=== PATIENT | female | born 1975 | race Caucasian/White ===

== ENCOUNTER 2018-01-03 18:29 | Emergency (ER) | payer MEDICAID ==
[~2018-01-03] VITALS: Ht 170.2 cm; Wt 132.6 kg
[~2018-01-03 18:29] MED LIST: AZEL6DRO EACHEYE; CLA10T PO; FLUT16SP26 BOTHNARES; HYDR-569 PO
[2018-01-03] MEDS ORDERED: ondansetron 4mg rapidly disintigrating tab PO STA (19:20)
[2018-01-03] MEDS ORDERED: ketorolac trometh inj. 60 MG/2 ML VIAL IM STA (19:20)
[2018-01-03] MEDS ORDERED: dexamethasone 4mg tablet PO STA (19:20)
[2018-01-03] MEDS ORDERED: ONDA8TAB9 PO (19:39)
[2018-01-03 19:59] VITALS: BP 164/91
== END 2018-01-03 20:00 | disposition home or self-care (01) ==
LOC: ER 18:29
DX: G43.909 Migraine, unspecified, not intractable, without status migrainosus (principal); G89.29 Other chronic pain; Z88.1 Allergy status to other antibiotic agents; Z88.8 Allergy status to other drugs, medicaments and biological substances; Z79.899 Other long term (current) drug therapy
CPT/HCPCS: 96372; 99283; J1885; J8540

== ENCOUNTER 2018-04-29 21:43 | Emergency (ER) | payer MEDICAID ==
[~2018-04-29] VITALS: Ht 170.2 cm; Wt 130.0 kg
[~2018-04-29 21:43] MED LIST changes: +HYDR-4383 PO; -HYDR-569 PO; +ONDA8TAB9 PO
[2018-04-29 21:54] VITALS: BP 174/98
[2018-04-29] MEDS ORDERED: AMOX-422 PO (22:39)
--- NOTE | 2018-04-29 22:51 | NUR ---
pt here for nasal congestion, cough
== END 2018-04-29 22:53 | disposition home or self-care (01) ==
LOC: ER 21:43
DX: J32.9 Chronic sinusitis, unspecified (principal); G89.29 Other chronic pain; Z98.890 Other specified postprocedural states; Z88.1 Allergy status to other antibiotic agents; Z79.899 Other long term (current) drug therapy
CPT/HCPCS: 99283

== ENCOUNTER 2018-06-28 19:47 | Emergency (ER) | payer MEDICAID ==
[~2018-06-28] VITALS: Ht 170.2 cm; Wt 131.1 kg
[2018-06-28 19:58] VITALS: BP 190/107
--- NOTE | 2018-06-28 20:11 | NUR ---
Pt ambulated to restroom without assistance and has slight limp.
[2018-06-28] MEDS ORDERED: ketorolac trometh inj. 60 MG/2 ML VIAL IM ONE (20:35)
[2018-06-28] MEDS ORDERED: DICL50TA8 PO (20:51)
== END 2018-06-28 21:07 | disposition home or self-care (01) ==
LOC: ER 19:50
DX: M79.672 Pain in left foot (principal); G89.29 Other chronic pain; M54.9 Dorsalgia, unspecified; Z88.1 Allergy status to other antibiotic agents; Z88.8 Allergy status to other drugs, medicaments and biological substances
CPT/HCPCS: 73650; 96372; 99283; J1885

== ENCOUNTER 2018-07-04 21:35 | Emergency (ER) | payer MEDICAID ==
[~2018-07-04] VITALS: Ht 170.2 cm; Wt 129.1 kg
[~2018-07-04 21:35] MED LIST changes: +DICL50TA8 PO
[2018-07-04 21:46] VITALS: BP 173/100
[2018-07-05] MEDS ORDERED: acetaminophen 325mg tablet PO ONE (00:30)
[2018-07-05] MEDS ORDERED: HYDR-3965 PO (00:33)
== END 2018-07-05 00:38 | disposition home or self-care (01) ==
LOC: ER 21:36
DX: M79.672 Pain in left foot (principal); G89.29 Other chronic pain; Z98.890 Other specified postprocedural states; Z88.1 Allergy status to other antibiotic agents; Z88.8 Allergy status to other drugs, medicaments and biological substances; Z79.899 Other long term (current) drug therapy
CPT/HCPCS: 99283

== ENCOUNTER 2018-09-02 20:57 | Emergency (ER) | payer MEDICAID ==
[~2018-09-02] VITALS: Ht 170.2 cm; Wt 127.7 kg
[2018-09-02] MEDS ORDERED: dexamethasone sod phosphate 10mg/ml inj IV STA (21:22)
[2018-09-02] MEDS ORDERED: ketorolac tromethamine 15mg/ml inj. IV ONE (21:25)
[2018-09-02] MEDS ORDERED: diphenhydrAMINE 50 mg/ml inj IV ONE (21:25)
[2018-09-02] MEDS ORDERED: normal saline 1000ML IV soln IVB ONE (21:25)
[2018-09-02] MEDS ORDERED: metoclopramide 5 mg/ml inj IV ONE (21:25)
[2018-09-02] MEDS ORDERED: ONDA4TAB6 PO (22:20)
[2018-09-02 22:21] VITALS: BP 148/92
== END 2018-09-02 22:35 | disposition home or self-care (01) ==
LOC: ER 20:57
DX: G43.909 Migraine, unspecified, not intractable, without status migrainosus (principal); G89.29 Other chronic pain; Z98.890 Other specified postprocedural states; Z88.1 Allergy status to other antibiotic agents; Z79.899 Other long term (current) drug therapy
CPT/HCPCS: 96374; 96375; 99283; J1100; J1200; J1885; J2765; J7030

== ENCOUNTER 2018-11-28 14:37 | Emergency (ER) | payer MEDICAID ==
[~2018-11-28] VITALS: Ht 170.2 cm; Wt 127.3 kg
[~2018-11-28 14:37] MED LIST changes: +ONDA4TAB6 PO
--- NOTE | 2018-11-28 15:15 | NUR ---
PATIENT STATES THAT SHE WAS DX WITH CARPAL TUNNEL OF RIGHT AND LEFT WRIST 20 YEARS AGO BUT ONLY HAD CARPAL TUNNEL SX ON THE LEFT HAND PATIENT C/O PALMAR NUMBNESS INTO WRIST
[2018-11-28] MEDS ORDERED: ketorolac tromethamine 15mg/ml inj. IM ONE (15:35)
[2018-11-28 17:08] VITALS: BP 149/68
== END 2018-11-28 17:29 | disposition home or self-care (01) ==
LOC: ER 14:37
DX: S63.591A Other specified sprain of right wrist, initial encounter (principal); G89.29 Other chronic pain; G43.909 Migraine, unspecified, not intractable, without status migrainosus; F10.99 Alcohol use, unspecified with unspecified alcohol-induced disorder; Z98.890 Other specified postprocedural states; Z88.8 Allergy status to other drugs, medicaments and biological substances; Z88.1 Allergy status to other antibiotic agents; Z79.899 Other long term (current) drug therapy; X50.1XXA Overexertion from prolonged static or awkward postures, initial encounter; Y93.89 Activity, other specified; Y92.89 Other specified places as the place of occurrence of the external cause; Y99.8 Other external cause status; Y90.9 Presence of alcohol in blood, level not specified
CPT/HCPCS: 29125; 73110; 96372; 99283; J1885

== ENCOUNTER 2018-12-18 16:44 | Emergency (ER) | payer MEDICAID ==
[~2018-12-18] VITALS: Ht 170.2 cm; Wt 127.0 kg
[2018-12-18] MEDS ORDERED: HYDROcodone/acetaminophen 5mg/325mg tablet PO ONE (17:45)
[2018-12-18 18:08] VITALS: BP 152/81
== END 2018-12-18 17:59 | disposition home or self-care (01) ==
LOC: ER 16:44
DX: S93.491A Sprain of other ligament of right ankle, initial encounter (principal); G43.909 Migraine, unspecified, not intractable, without status migrainosus; G89.29 Other chronic pain; F10.99 Alcohol use, unspecified with unspecified alcohol-induced disorder; Z88.8 Allergy status to other drugs, medicaments and biological substances; Z88.1 Allergy status to other antibiotic agents; Z79.899 Other long term (current) drug therapy; Z98.890 Other specified postprocedural states; X50.1XXA Overexertion from prolonged static or awkward postures, initial encounter; Y93.89 Activity, other specified; Y92.89 Other specified places as the place of occurrence of the external cause; Y99.8 Other external cause status; Y90.9 Presence of alcohol in blood, level not specified
CPT/HCPCS: 29515; 73610; 99283

== ENCOUNTER 2019-03-18 21:18 | Emergency (ER) | payer MEDICAID ==
[~2019-03-18] VITALS: Ht 170.2 cm; Wt 112.8 kg
--- NOTE | 2019-03-18 22:23 | NUR ---
MELINDA MONZON WITH PT NOW.
--- NOTE | 2019-03-18 22:24 | NUR ---
MELINDA MONZON TALKING WITH PT NOW.
[2019-03-18] MEDS ORDERED: ketorolac tromethamine 15mg/ml inj. IM ONE (22:25)
[2019-03-18 22:44] VITALS: BP 138/82
== END 2019-03-18 22:45 | disposition home or self-care (01) ==
LOC: ER 21:18
DX: S60.211A Contusion of right wrist, initial encounter (principal); G89.29 Other chronic pain; Z98.890 Other specified postprocedural states; Z88.1 Allergy status to other antibiotic agents; Z88.8 Allergy status to other drugs, medicaments and biological substances; Z79.899 Other long term (current) drug therapy; X50.9XXA Other and unspecified overexertion or strenuous movements or postures, initial encounter; Y93.89 Activity, other specified; Y92.89 Other specified places as the place of occurrence of the external cause; Y99.8 Other external cause status
CPT/HCPCS: 29125; 73130; 96372; 99283; J1885

== ENCOUNTER 2019-09-29 20:24 | Emergency (ER) | payer MEDICAID ==
[~2019-09-29] VITALS: Ht 170.2 cm; Wt 118.6 kg
[2019-09-29] MEDS ORDERED: diphenhydrAMINE 25mg capsule PO ONE (22:15)
[2019-09-29] MEDS ORDERED: proCHLORperazine 10 MG/2 ml inj IM ONE (22:15)
--- NOTE | 2019-09-29 22:16 | NUR ---
SPOKE WITH VÍCTOR COLLADO REGARDING PT SYMPTOMS NO RELIEF AND LONG LOBBY WAIT TIME. GIVEN VERBAL ORDER FOR COMPAZINE 10MG IM X1 DOSE AND BENADRYL 25MG ORAL CAPSULE X1 DOSE NOW. PT PLACED IN T2 FOR MONITORING WHILE RECEIVING TX.
[2019-09-29 23:01] VITALS: BP 132/74
== END 2019-09-29 23:04 | disposition home or self-care (01) ==
LOC: ER 20:24
DX: G43.909 Migraine, unspecified, not intractable, without status migrainosus (principal); G89.29 Other chronic pain; Z98.890 Other specified postprocedural states; Z72.89 Other problems related to lifestyle; Z88.1 Allergy status to other antibiotic agents; Z88.8 Allergy status to other drugs, medicaments and biological substances; Z79.899 Other long term (current) drug therapy
CPT/HCPCS: 96372; 99283; J0780; Q0163

== ENCOUNTER 2019-11-04 09:55 | Emergency (ER) | payer MEDICAID ==
[~2019-11-04] VITALS: Ht 170.2 cm; Wt 117.0 kg
[2019-11-04 09:57] VITALS: BP 135/96
[2019-11-04] MEDS ORDERED: HYDROcodone/acetaminophen 5mg/325mg tablet PO ONE (11:40)
[2019-11-04] MEDS ORDERED: HYDR-3965 PO (11:49)
== END 2019-11-04 12:05 | disposition home or self-care (01) ==
LOC: ER 09:56
DX: S89.91XA Unspecified injury of right lower leg, initial encounter (principal); G43.909 Migraine, unspecified, not intractable, without status migrainosus; G89.29 Other chronic pain; Z98.890 Other specified postprocedural states; Z72.89 Other problems related to lifestyle; Z88.8 Allergy status to other drugs, medicaments and biological substances; Z88.1 Allergy status to other antibiotic agents; Z79.899 Other long term (current) drug therapy; X50.1XXA Overexertion from prolonged static or awkward postures, initial encounter; Y93.89 Activity, other specified; Y92.89 Other specified places as the place of occurrence of the external cause; Y99.8 Other external cause status
CPT/HCPCS: 99283

== ENCOUNTER 2022-02-19 19:46 | Emergency (ER) | payer MEDICAID ==
[~2022-02-19] VITALS: Ht 170.2 cm; Wt 122.7 kg
[2022-02-19 20:21] VITALS: BP 136/81
== END 2022-02-20 03:56 | disposition left against medical advice (07) ==
LOC: ER 19:46
DX: G43.909 Migraine, unspecified, not intractable, without status migrainosus (principal); Z53.21 Procedure and treatment not carried out due to patient leaving prior to being seen by health care provider

== ENCOUNTER 2023-08-03 19:02 | Emergency (ER) | payer MEDICAID ==
[~2023-08-03] VITALS: Ht 170.2 cm; Wt 137.0 kg
[2023-08-03 19:16] VITALS: BP 180/100; PULSE 6; RESP 16; TEMP 98.2; O2SAT 99
[2023-08-03] MEDS ORDERED: CETI10CA PO (21:42)
[2023-08-03] MEDS ORDERED: AMOX-117 PO (21:42)
[2023-08-03] MEDS ORDERED: PSEU120T56 PO (21:42)
[2023-08-03] MEDS ORDERED: FLUT16SP2 BOTHNARES (21:42)
== END 2023-08-03 22:20 | disposition home or self-care (01) ==
LOC: ER 19:02
DX: J32.9 Chronic sinusitis, unspecified (principal); Z72.89 Other problems related to lifestyle; Z88.8 Allergy status to other drugs, medicaments and biological substances; Z79.899 Other long term (current) drug therapy
CPT/HCPCS: 99283

== ENCOUNTER 2024-05-17 16:08 | Emergency (ER) | payer MEDICAID ==
[~2024-05-17] VITALS: Ht 162.6 cm; Wt 146.7 kg
[~2024-05-17 16:08] MED LIST changes: +CETI10CA PO; +FLUT16SP2 BOTHNARES; +PSEU120T56 PO
[2024-05-17] MEDS ORDERED: LIDO700A32 TD (16:59)
[2024-05-17] MEDS ORDERED: BACL10TA2 PO (16:59)
[2024-05-17] MEDS: LIDOcaine 5% patch TP STA (17:01)
[2024-05-17] MEDS: ketorolac trometh 30MG/ML vial 30 MG/ML VIAL IM ONE (17:01)
[2024-05-17 17:09] VITALS: BP 126/86; PULSE 80; RESP 16; TEMP 97.7; O2SAT 98
== END 2024-05-17 17:10 | disposition home or self-care (01) ==
LOC: ER 16:08
DX: S39.012A Strain of muscle, fascia and tendon of lower back, initial encounter (principal); G89.29 Other chronic pain; M54.9 Dorsalgia, unspecified; G43.909 Migraine, unspecified, not intractable, without status migrainosus; Z72.89 Other problems related to lifestyle; Z88.8 Allergy status to other drugs, medicaments and biological substances; Z79.52 Long term (current) use of systemic steroids; Z79.899 Other long term (current) drug therapy; Z98.890 Other specified postprocedural states; X58.XXXA Exposure to other specified factors, initial encounter; Y93.89 Activity, other specified; Y92.89 Other specified places as the place of occurrence of the external cause; Y99.8 Other external cause status
CPT/HCPCS: 96372; 99283; J1885

== ENCOUNTER 2024-08-01 17:53 | Emergency (ER) | payer MEDICAID ==
[~2024-08-01] VITALS: Ht 170.2 cm; Wt 142.9 kg
[~2024-08-01 17:53] MED LIST changes: +BACL10TA2 PO; +LIDO700A32 TD
[2024-08-01] MEDS: amox tr/potassium clavulanate 875/125mg TAB PO ONE (19:32)
[2024-08-01] MEDS ORDERED: HYDR-3686 PO (19:33)
[2024-08-01] MEDS ORDERED: KEN0.1O TP (19:33)
[2024-08-01] MEDS ORDERED: CEPH-585 PO (19:33)
[2024-08-01 19:56] VITALS: BP 170/99; PULSE 92; RESP 18; TEMP 98.6; O2SAT 99
== END 2024-08-01 19:57 | disposition home or self-care (01) ==
LOC: ER 17:54
DX: L30.9 Dermatitis, unspecified (principal); G89.29 Other chronic pain; M54.9 Dorsalgia, unspecified; G43.909 Migraine, unspecified, not intractable, without status migrainosus; Z98.890 Other specified postprocedural states; Z72.89 Other problems related to lifestyle; Z88.8 Allergy status to other drugs, medicaments and biological substances; Z79.899 Other long term (current) drug therapy
CPT/HCPCS: 99283

== ENCOUNTER 2024-10-05 11:21 | Emergency (ER) | payer MEDICAID ==
[~2024-10-05] VITALS: Ht 170.2 cm; Wt 129.1 kg
[~2024-10-05 11:21] MED LIST changes: +LIDO-52 TD; -LIDO700A32 TD
[2024-10-05 11:25] VITALS: TEMP 98.3
[2024-10-05 15:11] VITALS: BP 168/98; PULSE 71; O2SAT 100
--- NOTE | 2024-10-05 16:22 | Physician Documentation ---
History of Present Illness ~ Chief Complaint: Headache Stated Complaint: MIGRAINE Time Seen by MD: 16:06 Primary Medical Doctor: PRIYA BETANCOURT HPI 49-year-old female presents to the ED with a complaint of a migraine x4 days. She states she has taken many OTC remedies including Excedrin, caffeine, soda ibuprofen yesterday. States that she does have light sensitivity and mild nausea. She reports that the pain starts in her forehead and in radiates to the back of her head. Denies any previous neck injury Day of Onset: Oct 05, 2024 Medication Reconciliation Allergies: Coded Allergies: Bacitracin Zinc (Verified Allergy, Mild, RASH, 10/05/24) bacitracin (Verified Allergy, Mild, RASH, 10/05/24) neomycin sulfate (Verified Allergy, Mild, RASH, 10/05/24) polymyxin B (Verified Allergy, Mild, RASH, 10/05/24) Scheduled Azelastine Hcl (Optivar), 1 DROP EACHEYE BID Baclofen (Baclofen), 1 TAB PO Q8H Cetirizine Hcl (Zyrtec), 1 CAP PO DAILY Fluticasone Propionate (Fluticasone Propionate), 2 SPRAYS BOTHNARES DAILY Fluticasone Propionate (Flonase), 2 SPRAYS BOTHNARES DAILY Hydrocodone/Acetaminophen ([place] 5-325 Tablet), 1 TABLET PO BID Lidocaine (Lidoderm), 1 PATCH TD DAILY Loratadine* (Claritin*), 10 MG PO DAILY Ondansetron (Zofran Odt), 4 MG PO QID Ondansetron Hcl (Zofran), 1 TAB PO Q8H Pseudoephedrine HCl (Sudafed 12 Hour), 1 TAB PO Q12H Scheduled PRN Diclofenac Sodium (Diclofenac Sodium), 1 TABLET PO BID PRN for pain Past Medical History Past Medical History: Migraine, *MUSCULOSKELETAL*, Chronic Back Pain, Psoriasis Past Surgical History: orthopedic surgeries Alcohol Use: Occasionally Drug Use: none Lives with: Family Lives In: Home Occupation: employed Review of Systems All Other Systems at this time: Reviewed and Negative ROS As stated above in the HPI, otherwise all systems are reviewed and negative. Physical Exam Vital Signs: Temperature: 98.3, Source: Temporal, Heart Rate: 71, Respiratory Rate: 18, BP: 168/98, Pulse Oximetry: 100, Weight: 129.090 Oxygen Flow Rate: 0 Physical Exam General: Alert, no apparent distress. HEENT: PERRL, EOMI, no injection, moist mucous membranes. Respiratory: Lungs clear, no respiratory distress. Cardiovascular: Regular rate and rhythm, no murmurs. Neurologic: Oriented x4. Psychiatric: Normal mood and affect. Skin: Normal color, warm and dry. No edema, no ecchymosis. Progress Results/Orders Results/Orders Completed Orders - JOSE LUIS SIMONS PRODUCTION RECOVERY OPERATOR Normal Saline 1000ml (Sodium Chloride 10 (10/05/24 16:20) Ketorolac Trometh 30mg/Ml Vial (Toradol (10/05/24 16:20) Metoclopramide Inj (Reglan Inj) (10/05/24 16:20) Diphenhydramine Inj (Benadryl Inj.) (10/05/24 16:20) Diphenhydramine Capsule (Benadryl Capsul (10/05/24 17:00) Metoclopramide Tablet (Reglan Tablet) (10/05/24 17:00) Ketorolac Trometh 15mg/Ml Vial (Toradol (10/05/24 17:00) Medications Received in ER Medications (Trade) Dose Ordered Sig/Kyle Route PRN Reason Start Time Stop Time Status Last Admin Dose Admin (Benadryl capsule) 25 mg ONCE ONCE PO 10/05/24 17:00 10/05/24 17:04 DC 10/05/24 17:16 25 MG (Reglan tablet) 10 mg ONCE ONCE PO 10/05/24 17:00 10/05/24 17:04 DC 10/05/24 17:16 10 MG (Toradol injection) 15 mg ONCE ONCE IM 10/05/24 17:00 10/05/24 17:04 DC 10/05/24 17:17 15 MG Vital Signs 10/05/24 10/05/24 10/05/24 10/05/24 11:25 15:11 16:44 17:17 Temp 98.3 Pulse 95 71 Resp 18 18 16 B/P (MAP) 171/92 168/98 (121) Pulse Ox 95 100 O2 Flow Rate 0 0 Medical Decision Making Findings He had patient for a an acute migraine. Not present with any focal deficits or any other symptoms outside of light sensitivity and head pain. Had no vision deficiencies. She refused fluid hydration and IV meds. Gave her oral meds and discharged she reported improved symptoms Differential Dx:Considerations: Include: RED-Cluster, RED-Migraine, RED- Hypertensive, RED-Muscular contraction, RED-Post lumbar puncture, Carbon monoxide toxicity, Close head injuyr, CVA, Fever induced, Hemorrhage-Epidural, Hemorrhage-Intracerebral, Hemorrhage-Subarachnoid, Hemorrhage-Subdural, Mass lesion, Meningitis, Post-traumtic, Pseudotumor cerebri, Sinusitis, Temporal arteritis, Trigeminal neuralgia, Other Departure Disposition: HOME / SELF CARE / HOMELESS Impression: Primary Impression: Migraine Additional Impression: Headache Condition: Stable Discharge Instructions: Migraine Headache Referrals: NO PRIMARY CARE PROVIDER (PCP) Signature Scribe Signature: d Attestation: Scribed for Jose Luis Simons Np by Jose Luis Lewis NP . 10/05/24 17:44 JOSE LUIS SIMONS NP Oct 05, 2024 16:22
[2024-10-05] MEDS: ketorolac trometh 30MG/ML vial 30 MG/ML VIAL IV ONE (17:12)
[2024-10-05] MEDS: metoclopramide 5 mg/ml inj IV ONE (17:12)
[2024-10-05] MEDS: normal saline 1000ML IV soln IVB ONE (17:13)
[2024-10-05 17:17] VITALS: RESP 16
[2024-10-05] MEDS: ketorolac trometh 15mg/ml vial 15 MG/ML ML IM ONE (17:17)
== END 2024-10-05 17:48 | disposition home or self-care (01) ==
LOC: ER 11:22
DX: G43.909 Migraine, unspecified, not intractable, without status migrainosus (principal); Z88.8 Allergy status to other drugs, medicaments and biological substances
CPT/HCPCS: 96372; 99283; J1885; J7030; Q0163

== ENCOUNTER 2024-12-09 19:31 | Emergency (ER) | payer MEDICAID ==
[~2024-12-09] VITALS: Ht 170.2 cm; Wt 118.0 kg
[2024-12-09] MEDS: ketorolac trometh 15mg/ml vial 15 MG/ML ML IM ONE (23:13)
[2024-12-09] MEDS ORDERED: BACL10TA2 PO (23:43)
--- NOTE | 2024-12-09 23:43 | Physician Documentation ---
History of Present Illness ~ Chief Complaint: Back Pain Stated Complaint: BACK PAIN Time Seen by MD: 22:48 Primary Medical Doctor: PRIYA WILSON [facility] HPI This is a 49-year-old female with history of right-sided low back pain and sciatica, patient reports that she had to do a significant amount of walking in the past few days and this is aggravated her sciatica, patient presents requesting an injection of Toradol and a prescription for baclofen as this combination of medications has helped in the past. Patient reports no significant change in the nature of the back pain and reports no new numbness or weakness in her legs, no recent trauma, no saddle paresthesia, no fever, no unexpected weight loss, no loss of bowel or bladder control, and no history of IV drug use, cancer, or tuberculosis. Medication Reconciliation Allergies: Coded Allergies: Bacitracin Zinc (Verified Allergy, Mild, RASH, 12/09/24) bacitracin (Verified Allergy, Mild, RASH, 12/09/24) neomycin sulfate (Verified Allergy, Mild, RASH, 12/09/24) polymyxin B (Verified Allergy, Mild, RASH, 12/09/24) Scheduled Azelastine Hcl (Optivar), 1 DROP EACHEYE BID Baclofen (Baclofen), 1 TAB PO Q8H Baclofen (Baclofen), 1 TAB PO Q8H Cetirizine Hcl (Zyrtec), 1 CAP PO DAILY Fluticasone Propionate (Fluticasone Propionate), 2 SPRAYS BOTHNARES DAILY Fluticasone Propionate (Flonase), 2 SPRAYS BOTHNARES DAILY Hydrocodone/Acetaminophen ([place] 5-325 Tablet), 1 TABLET PO BID Lidocaine (Lidoderm), 1 PATCH TD DAILY Loratadine* (Claritin*), 10 MG PO DAILY Ondansetron (Zofran Odt), 4 MG PO QID Ondansetron Hcl (Zofran), 1 TAB PO Q8H Pseudoephedrine HCl (Sudafed 12 Hour), 1 TAB PO Q12H Scheduled PRN Diclofenac Sodium (Diclofenac Sodium), 1 TABLET PO BID PRN for pain Past Medical History Past Medical History: Migraine, *MUSCULOSKELETAL*, Chronic Back Pain, Psoriasis Past Surgical History: orthopedic surgeries Alcohol Use: Occasionally Drug Use: none Lives with: Family Lives In: Home Occupation: employed Review of Systems ROS As stated above in the HPI, otherwise all systems are reviewed and negative. Physical Exam Physical Exam Vital Signs: Temperature: 97.6, Source: Temporal, Heart Rate: 65, Respiratory Rate: 16, BP: 170/91, Pulse Oximetry: 98, Weight: 118.000 Physical Exam VITALS: Reviewed and as above. GENERAL: Alert, nontoxic appearing, no apparent distress. RESPIRATORY: No increased work of breathing, no respiratory distress, speaking in full clear sentences BACK: No central spinal tenderness, no step-offs no crepitus Progress Results/Orders Results/Orders Completed Orders - GACRIA VITALE Baclofen Tablet (Lioresal Tablet) (12/09/24 22:00) Ketorolac Trometh 15mg/Ml Vial (Toradol (12/09/24 22:00) Vital Signs 12/09/24 12/09/24 12/09/24 12/09/24 19:40 23:13 23:37 23:49 Temp 97.6 97.4 Pulse 65 82 Resp 15 16 16 16 B/P (MAP) 170/91 150/82 Pulse Ox 98 98 Medical Decision Making Findings This 49 year-old female with history of right sided low back pain and sciatica presented requesting a Toradol injection and a prescription for baclofen after aggravating her low back pain and sciatica over the past 2 to 3 days due to increased physical activity. Physical exam demonstrated mild tenderness to the low back without central spinal tenderness. Remainder of physical exam was benign with no other findings consistent with patient report of no other symp toms. It was reassuring patient reported no significant change in the nature of the back pain and reports no new numbness or weakness in her legs, no recent trauma, no saddle paresthesia, no fever, no unexpected weight loss, no loss of bowel or bladder control, and no history of IV drug use, cancer, or tuberculosis therefore imaging not indicated. Patient was medicated for pain and provided careful return to care precautions and discharge to follow up with primary care. Patient reported understanding of all return precautions. Differential Dx:Considerations: Include: Aortic dissection, Appendicitis, DJD, Fracture, Musculoskeletal pain, Strain, Urolithiasis, Other (Cauda Equina) Departure Time of Disposition: 23:43 Disposition: 01 HOME / SELF CARE / HOMELESS Impression: Primary Impression: Low back pain Qualified Codes: M54.41 - Lumbago with sciatica, right side; G89.29 - Other chronic pain Condition: Improved Discharge Instructions: Chronic Back Pain, Sciatica Additional Instructions: Please use the baclofen as needed for low back pain, continue to use the previously prescribed and [id number] medications for your chronic low back pain. Do not drive or operate heavy machinery while taking the baclofen. Please follow up with your primary care provider in the next few days. Please return to the emergency department for any new or worsening concerning symptoms including but not limited to new loss of bowel or bladder control, new or progressively worsening weakness or numbness in your legs, or for numbness in your groin. Referrals: NO PRIMARY CARE PROVIDER (PCP) Prescriptions Baclofen (Baclofen) 10 Mg Tablet 1 TAB PO Q8H for 10 Days, #30 TAB 0 Refills Prov: GARCIA VITALE 12/09/24 Education Educated: Patient Educated regarding: diagnosis, treatment, prognosis, need for follow up Signature Scribe Signature: No Scribe Attestation: The note accurately reflects work and decisions made by me.YVETTE [place] 12/12/24 15:39 GARCIA VITALE Dec 09, 2024 23:43
[2024-12-09 23:49] VITALS: BP 150/82; PULSE 82; RESP 16; TEMP 97.4; O2SAT 98
== END 2024-12-09 23:51 | disposition home or self-care (01) ==
LOC: ER 19:31
DX: M54.50 Low back pain, unspecified (principal); G43.909 Migraine, unspecified, not intractable, without status migrainosus; G89.29 Other chronic pain; Z79.899 Other long term (current) drug therapy; Z88.8 Allergy status to other drugs, medicaments and biological substances; Z72.89 Other problems related to lifestyle
CPT/HCPCS: 96372; 99283; J1885

== ENCOUNTER 2025-01-21 07:52 | Emergency (ER) | payer MEDICAID ==
[~2025-01-21] VITALS: Ht 170.2 cm; Wt 138.6 kg
[2025-01-21 07:59] VITALS: BP 145/95; PULSE 71; TEMP 97.6; O2SAT 97
--- NOTE | 2025-01-21 09:29 | Physician Documentation ---
History of Present Illness ~ Chief Complaint: Foot pain Stated Complaint: FOOT PAIN Time Seen by MD: 09:14 OK to notify your PCP?: Yes Primary Medical Doctor: PRIYA BETANCOURT Source: patient Mode of Arrival: POV Exam Limitations: no limitations HPI 49-year-old female presents for Right foot pain for 2 weeks. She says that the pain has increased to where she is unable to walk her child to school. She reports the pain wraps like a stirrup from the lateral malleolus across the Achilles and to the medial malleolus. She is also having pain in the arch of her foot as well. No visible swelling. She has tried Tylenol and ibuprofen at home as well as rolling the arch of her foot onto a water bottle with no relief. Tetanus witin 5 years: Yes Medication Reconciliation Allergies: Coded Allergies: Bacitracin Zinc (Verified Allergy, Mild, RASH, 01/21/25) bacitracin (Verified Allergy, Mild, RASH, 01/21/25) neomycin sulfate (Verified Allergy, Mild, RASH, 01/21/25) polymyxin B (Verified Allergy, Mild, RASH, 01/21/25) Scheduled Azelastine Hcl (Optivar), 1 DROP EACHEYE BID Baclofen (Baclofen), 1 TAB PO Q8H Baclofen (Baclofen), 1 TAB PO Q8H Cetirizine Hcl (Zyrtec), 1 CAP PO DAILY Fluticasone Propionate (Fluticasone Propionate), 2 SPRAYS BOTHNARES DAILY Fluticasone Propionate (Flonase), 2 SPRAYS BOTHNARES DAILY Hydrocodone/Acetaminophen ([place] 5-325 Tablet), 1 TABLET PO BID Lidocaine (Lidoderm), 1 PATCH TD DAILY Loratadine* (Claritin*), 10 MG PO DAILY Ondansetron (Zofran Odt), 4 MG PO QID Ondansetron Hcl (Zofran), 1 TAB PO Q8H Pseudoephedrine HCl (Sudafed 12 Hour), 1 TAB PO Q12H Scheduled PRN Diclofenac Sodium (Diclofenac Sodium), 1 TABLET PO BID PRN for pain Past Medical History Past Medical History: Migraine, *MUSCULOSKELETAL*, Chronic Back Pain, Psoriasis Past Surgical History: orthopedic surgeries Alcohol Use: Occasionally Drug Use: none Lives with: Family Lives In: Home Occupation: employed Review of Systems All Other Systems at this time: Reviewed and Negative Physical Exam Vital Signs: RN Vital Signs have been reviewed: Yes, Temperature: 97.6, Source: Temporal, Heart Rate: 71, Respiratory Rate: 16, BP: 145/95, Pulse Oximetry: 97, Weight: 138.600 Pulse Oximetry Reflects: adequate oxygenation Physical Exam General: Alert, no distress. HEENT: No injection, moist mucous membranes. Neck: Full range of motion. Respiratory: No respiratory distress, equal chest rise and fall. Chest: No accessory muscle use. Cardiovascular: Regular rate and rhythm. Gastrointestinal: Nondistended. Extremities: Right foot-tenderness to palpation to arch of foot, no swelling noted, good range of motion. Good CSM, good pulses, good sensation in right foot. Neurologic: Oriented x4. Psychiatric: Normal mood and affect. Skin: Normal color, warm and dry. Progress Results/Orders Reviewed/noted all lab results: Yes Results/Orders Orders - LOREN MEJIAS LOUVER DOOR ASSEMBLER Foot, Complete (3vw Min) (01/21/25 09:18) Completed Orders - LOREN MEJIAS [employer]OU[employer] DOOR ASSEMBLER Foot, Complete (3vw Min) (01/21/25 09:18) Hydrocodone/[place] 5/325mg Tab ([place] 5/32 (01/21/25 09:20) Medications Received in ER Medications (Trade) Dose Ordered Sig/Kyle Route PRN Reason Start Time Stop Time Status Last Admin Dose Admin ([place] 5/325mg tablet) 1 tab ONCE ONCE PO 01/21/25 09:20 01/21/25 09:21 DC 01/21/25 09:43 1 TAB Vital Signs 01/21/25 01/21/25 07:59 09:43 Temp 97.6 Pulse 71 Resp 16 18 B/P (MAP) 145/95 Pulse Ox 97 EKG/XRAY/CT/US/VASC/MRI Bone/Soft Tissue X-Ray (Ext.) : Additional Comment Right foot x-ray as interpreted by me; no acute fracture, no soft tissue swelling, or foreign body. Degenerative spurring of the calcaneus. Medical Decision Making Additional information obtaine: old records Findings Since she has had this same pain for the past 2 weeks with no improvement despite home measures, she is currently wearing Crocs. We discussed that she needs to be wearing supportive footwear. I provided her with Bryan for her pain while in the department. I placed her in a postop shoe to help provide better support to that foot. Her right foot x-ray is negative for any acute fracture but there is degenerative spurring of the calcaneus. We discussed the limitations of x-ray. We discussed follow up instructions as well as return instructions. General Diff Dx:Considerations: Unlikely: Abrasion, Contusion, Fracture, Hematoma, Laceration, Malunion, Neurovascular injury, Open fracture, Sprain, Ulcer, Other Knee Diff Dx:Considerations: Unlikely: Abrasion, Arthritis, Contusion, DJD, Fracture-femur, Fracture-fibula, Fracture-patella, Fracture-tibia, Gout, Hematoma, Laceration, Meniscus injury, Neurovascular injury, Open fracture, Rheumatoid arthritis, Septic, Sprain, Sprain-MCL, Sprain-LCL, Sprain-ACL, Sprain-PCL, Other Ankle Diff Dx:Considerations: Unlikely: Abrasion, Arthritis, Contusion, DJD, Fracture-metatarsal, Fracture-fibula, Fracture-tarsal, Fracture-tibia, Gout, Hematoma, Laceration, Malunion, Neurovascular injury, Nonunion, Open fracture, Osteomyelitis, Rheumatoid arthritis, Sprain, Septic, Ulcer, Other Foot Diff Dx:Considerations: Include: Contusion, Fracture-metatarsal, Fracture- phalynx, Fracture-tarsal, Neurovascular injury, Sprain, Other (Plantar fasciitis, Achilles tear, ) Toe Diff Dx:Considerations: Unlikely: Abrasion, Cellulitis, Contusion, Dislocation, Felon, Fracture, Hematoma, Laceration, Neurovascular injury, Open fracture, Paronychia, Subungual hematoma, Other Departure Disposition: 01 HOME / SELF CARE / HOMELESS Impression: Primary Impression: Foot pain Condition: Stable Discharge Instructions: Sprains Additional Instructions: Continue to wear the postop shoe to provide extra support to this foot. Follow up with her primary care provider and return back here for any new or worsening symptoms. Your x-ray did not show any fracture of the foot that you may benefit from further imaging on an outpatient basis. Continue to rest, ice/heat, elevate your foot as well as continue taking Tylenol and ibuprofen for pain relief. Referrals: NO PRIMARY CARE PROVIDER (PCP) Education Educated: Patient Educated regarding: diagnosis, treatment, prognosis, need for follow up Additional Comment Medical Screen Exam This patient recieved a medical screening examination. After reviewing the individual's medical complaints with presenting symptoms and performing an appropriate physical examination, it was determined that no immediate life-thre atening emergency medical condition is present. This individual is also not a women having contractions. Signature Scribe Signature: . Attestation: Scribed for Loren Mejias by Loren Lewis NP . 01/21/25 14:34 Parts of this note were created using [employer] voice recognition software program. While efforts were made to correct any mistakes made by this voice recognition software program, nonsensical phrases may remain in this note. In addition, there may be errors and syntax, grammar, content and spelling. LOREN MEJIAS [facility] Jan 21, 2025 09:29
[2025-01-21 09:43] VITALS: RESP 18
[2025-01-21] MEDS: HYDROcodone/acetaminophen 5mg/325mg tablet PO ONE (09:43)
--- NOTE | 2025-01-21 09:44 | RADIOLOGY REPORT ---
CLINICAL INDICATION: right foot pain TECHNIQUE: DI FOOT, COMPLETE (3VW MIN), right Comparison: None FINDINGS/IMPRESSION: : There is no evidence of acute fracture or dislocation. Soft tissues are unremarkable. Degenerative spurring of the calcaneus.
== END 2025-01-21 11:26 | disposition home or self-care (01) ==
LOC: ER 07:52
DX: M79.671 Pain in right foot (principal); G89.29 Other chronic pain; G43.909 Migraine, unspecified, not intractable, without status migrainosus; Z88.8 Allergy status to other drugs, medicaments and biological substances; Z79.899 Other long term (current) drug therapy; Z98.890 Other specified postprocedural states; Z72.89 Other problems related to lifestyle
CPT/HCPCS: 73630; 99283; L3260